=== PATIENT | female | born 1970 | race Caucasian/White ===

== ENCOUNTER → 2018-07-24 | Outpatient (CLI) | payer OTHER ==
[~2018-07-24] MED LIST: ACHD5005 PO; AMOX-358 PO; GUAI5LIQ PO
--- NOTE | 2018-07-24 11:11 | Diagnostic Imaging Report ---
INDICATION: Routine screening. Comparison is made with prior mammogram from 07/03/2016 and 12/13/2014. 2-D and 3-D bilateral screening mammography was performed with CAD. Scattered fibroglandular densities are identified bilaterally. The parenchymal pattern is stable. No dominant mass or malignant appearing microcalcifications are seen. The axillae are unremarkable. IMPRESSION: BI-RADS category one No mammographic features suspicious for malignancy are identified. ACR BI-RADS Category 1: Negative. Result letter will be mailed to the patient. Note: At least 10% of breast cancer is not imaged by mammography. Dictated by: Dictated on workstation # [id number]
== END ==
LOC: RAD 09:32
PROVIDERS: ATTEND Nurse Practitioner Family
DX: Z12.31 Encounter for screening mammogram for malignant neoplasm of breast (principal)
CPT/HCPCS: 77067

== ENCOUNTER 2019-11-14 11:49 | Emergency (ER) | payer SELFPAY ==
[~2019-11-14] VITALS: Ht 157.5 cm; Wt 97.5 kg
[2019-11-14] MEDS ORDERED: ASPIRIN 81 MG CHEW (CHILDREN'S ASA) PO ONE (12:00)
[2019-11-14 12:10] LABS: BASOPHILS % (AUTO) 0 % (0-10); EOSINOPHILS # (AUTO) 0.1 10^3/uL (0.0-0.3); EOSINOPHILS % (AUTO) 2 % (0-10); HEMATOCRIT 39 % (35-52); HEMOGLOBIN 12.9 G/DL (11.5-16.0); LYMPHOCYTES # (AUTO) 1.6 X 10^3 (1.0-4.0); LYMPHOCYTES % (AUTO) 28 % (12-44); MEAN CORPUSCULAR HEMOGLOBIN 30 PG (25-34); MEAN CORPUSCULAR HGB CONC 33 G/DL (32-36); MEAN CORPUSCULAR VOLUME 89 FL (80-99); MEAN PLATELET VOLUME 10.9 FL (7.4-10.4); MONOCYTES # (AUTO) 0.5 X 10^3 (0.0-1.0); MONOCYTES % (AUTO) 9 % (0-12); NEUTROPHILS # (AUTO) 3.4 X 10^3 (1.8-7.8); NEUTROPHILS % (AUTO) 60 % (42-75); PLATELET COUNT 255 10^3/uL (130-400); RED CELL DISTRIBUTION WIDTH 13.6 % (10.0-14.5); WHITE BLOOD COUNT 5.7 10^3/uL (4.3-11.0)
[2019-11-14] MEDS ORDERED: meTOprolol 5 MG/5 ML (LOPRESSOR) VIAL IV ONE (12:15)
[2019-11-14 12:21] LABS: INR 0.9 (0.8-1.4); PROTHROMBIN TIME PATIENT 12.7 SEC (12.2-14.7)
--- NOTE | 2019-11-14 12:23 | Diagnostic Imaging Report ---
CLINICAL HISTORY: Patient with palpitations and hypertension. Exam: Portable chest x-ray upright view. Comparisons: Chest x-ray dated 09/02/2016. Findings: Lungs/pleura: Lungs are clear. There is no pneumothorax. There is no pleural effusion. Mediastinum: Unremarkable. Pulmonary vasculature: Unremarkable. Heart: Unremarkable. Bones/extrathoracic soft tissue: There are hypertrophic spurs involving the thoracic spine. Impression: There is no radiographic evidence of acute cardiopulmonary process. Dictated by: Dictated on workstation # [id number]
--- NOTE | 2019-11-14 12:27 | ED Cardiac General ---
History of Present Illness General Chief Complaint: Cardiac/General Problems Stated Complaint: STATING HEART IS BEATING HARD,HIGH BLOOD PRESSURE Nursing Triage Note: PT AMBULATE TO ROOM 06 WITH C/O PALPITATIONS AND HYPERTENSION. PT STATES THIS HAS HAPPENED PREVIOUSLY. History of Present Illness Date Seen by Provider: Nov 14, 2019 Time Seen by Provider: 11:48 Initial Comments 49-year-old female for palpitations and hypertension started at approximately 0730 this morning. Patient reports blood pressures 180s/100 and pulse 50-110. She has intermittent feelings that her pulse is "hard" but no chest pressure or pain. No n/v/d or diaphoresis. She has no history of CAD or diabetes. Her parents and siblings do have a history of cardiomyopathy. She was started on phentermine 37.5 mg approximately 6 weeks ago for obesity. She has been taking the medication daily and took this medication earlier today. No other medications or allergies. Timing/Duration: 4-6 hours Severity: mild Location: substernal Activities at Onset: none Prior CP/Workup: no prior chest pain NTG SL [employer]: No ASA po [employer]IST: No Associated Systoms: No Chest Pain, No Cough, No Diaphoresis, No Fever/Chills, No Headaches, No Loss of Appetite; Malaise; No Nausea/Vomiting, No Rash, No Seizure, No Shortness of Air, No Syncope, No Weakness Allergies and Home Medications Allergies Coded Allergies: No Known Drug Allergies (Unverified , 10/03/11) Home Medications Amoxicillin/Potassium Clav 1 Each Tablet, 1 EACH PO BID Prescribed by: COLIN AHUMADA on 09/02/16 1304 Guaifenesin/Codeine Phosphate 5 Ml Liquid, 5-10 ML PO Q6H Prescribed by: COLIN AHUMADA on 09/02/16 1304 Hydrocodone Bit/Acetaminophen 1 Each Tablet, 1 EACH PO Q 4 HOURS PRN PAIN Prescribed by: LILIA MATIAS on 10/03/11 1806 Patient Home Medication List Home Medication List Reviewed: Yes Review of Systems Review of Systems Constitutional: no symptoms reported, see HPI EENTM: No Symptoms Reported, See HPI Respiratory: No Symptoms Reported, See HPI; Denies Cough, Denies Shortness of Air, Denies SOA With Exertion, Denies SOA at Rest Cardiovascular: No Symptoms Reported, See HPI; Denies Chest Pain All Other Systems Reviewed Negative Unless Noted: Yes Past Nmbzwlu-Iqlhnk-Gkdxsh Hx Past Med/Social Hx: Reviewed Nursing Past Med/Soc Hx Patient Social History Alcohol Use: Occasionally Uses Recreational Drug Use: No Smoking Status: Former Smoker Type Used: Cigars 2nd Hand Smoke Exposure: Yes Recent Foreign Travel: No Contact w/Someone Who Travel: No Recent Infectious Disease Expo: No Recent Hopitalizations: No Physical Abuse: No Sexual Abuse: No Mistreated: No Fear: No Seasonal Allergies Seasonal Allergies: No Past Medical History Surgeries: Yes Tubal Ligation Respiratory: No Cardiac: No Neurological: No Reproductive Disorders: No Genitourinary: No Gastrointestinal: No Musculoskeletal: No Endocrine: No HEENT: No Cancer: No Psychosocial: No Integumentary: No Blood Disorders: No Physical Exam Vital Signs Vital Signs - First Documented 11/14/19 11:54 Pulse 97 Resp 18 O2 Delivery Room Air O2 Flow Rate 97.00 Capillary Refill : Less Than 3 Seconds Height, Weight, BMI Height: 5'2" Weight: 230lbs. oz. 104.438528xr; 39.00 BMI Method:Stated General Appearance: No Apparent Distress, WD/WN, Obese HEENT: PERRL/EOMI, TMs Normal, Normal ENT Inspection, Pharynx Normal Neck: Full Range of Motion, Normal Inspection, Non Tender, Supple Respiratory: Chest Non Tender, Lungs Clear, Normal Breath Sounds Cardiovascular: Regular Rate, Rhythm, No Edema, No Murmur, Normal Peripheral Pulses Gastrointestinal: Normal Bowel Sounds, Non Tender, Soft Extremity: Normal Capillary Refill, Normal Inspection, Normal Range of Motion Neurologic/Psychiatric: Alert, Oriented x3, No Motor/Sensory Deficits Skin: Normal Color, Warm/Dry Lymphatic: No Adenopathy Progress/Results/Core Measures Results/Orders Lab Results Laboratory Tests Test 11/14/19 12:02 11/14/19 12:27 11/14/19 12:50 Range/Units White Blood Count 5.7 4.3-11.0 10^3/uL Red Blood Count 4.37 4.35-5.85 10^6/uL Hemoglobin 12.9 11.5-16.0 G/DL Hematocrit 39 35-52 % Mean Corpuscular Volume 89 80-99 FL Mean Corpuscular Hemoglobin 30 25-34 PG Mean Corpuscular Hemoglobin Concent 33 32-36 G/DL Red Cell Distribution Width 13.6 10.0-14.5 % Platelet Count 255 130-400 10^3/uL Mean Platelet Volume 10.9 H 7.4-10.4 FL Neutrophils (%) (Auto) 60 42-75 % Lymphocytes (%) (Auto) 28 12-44 % Monocytes (%) (Auto) 9 0-12 % Eosinophils (%) (Auto) 2 0-10 % Basophils (%) (Auto) 0 0-10 % Neutrophils # (Auto) 3.4 1.8-7.8 X 10^3 Lymphocytes # (Auto) 1.6 1.0-4.0 X 10^3 Monocytes # (Auto) 0.5 0.0-1.0 X 10^3 Eosinophils # (Auto) 0.1 0.0-0.3 10^3/uL Basophils # (Auto) 0.0 0.0-0.1 10^3/uL Prothrombin Time 12.7 12.2-14.7 SEC INR Comment 0.9 0.8-1.4 Activated Partial Thromboplast Time 27 24-35 SEC Sodium Level 137 135-145 MMOL/L Potassium Level 5.0 3.6-5.0 MMOL/L Chloride Level 104 98-107 MMOL/L Carbon Dioxide Level 18 L 21-32 MMOL/L Anion Gap 15 H 5-14 MMOL/L Blood Urea Nitrogen 7 7-18 MG/DL Creatinine 0.65 0.60-1.30 MG/DL Estimat Glomerular Filtration Rate > 60 BUN/Creatinine Ratio 11 Glucose Level 84 70-105 MG/DL Calcium Level 9.2 8.5-10.1 MG/DL Corrected Calcium 8.5-10.1 MG/DL Magnesium Level 1.7 1.6-2.4 MG/DL Total Bilirubin 0.5 0.1-1.0 MG/DL Aspartate Amino Transf (AST/SGOT) 31 5-34 U/L Alanine Aminotransferase (ALT/SGPT) 31 0-55 U/L Alkaline Phosphatase 56 40-136 U/L Myoglobin 18.3 10.0-92.0 NG/ML Troponin I < 0.028 <0.028 NG/ML Total Protein 7.7 6.4-8.2 GM/DL Albumin 4.6 H 3.2-4.5 GM/DL TSH [place] Testing 1.03 0.35-4.94 UIU/ML My Orders Orders - YUKO,CHUY PAINT PREPPER Cbc With Automated Diff (11/14/19 11:53) Magnesium (11/14/19 11:53) Chest 1 View, Ap/Pa Only (11/14/19 11:53) Ekg Tracing (11/14/19 11:53) Comprehensive Metabolic Panel (11/14/19 11:53) Myoglobin Serum (11/14/19 11:53) Protime With Inr (11/14/19 11:53) Partial Thromboplastin Time (11/14/19 11:53) O2 (11/14/19 11:53) Monitor-Rhythm Ecg Trace Only (11/14/19 11:53) Ed Iv/Invasive Line Start (11/14/19 11:53) Troponin I (11/14/19 11:53) Aspirin Chewable Tablet (Baby Aspirin Ch (11/14/19 12:00) Ua Culture If Indicated (11/14/19 12:02) Metoprolol Tartrate Injection (Lopressor (11/14/19 12:15) Thyroid Analyzer (11/14/19 12:31) Medications Given in ED Current Medications Medications Dose Ordered Sig/Stu Route Start Time Stop Time Status Last Admin Dose Admin Aspirin 324 mg ONCE ONCE PO 11/14/19 12:00 11/14/19 12:01 DC 11/14/19 12:13 324 MG Metoprolol Tartrate 5 mg ONCE ONCE IV 11/14/19 12:15 11/14/19 12:16 DC 11/14/19 12:13 5 MG Vital Signs/I&O 11/14/19 11:54 Pulse 97 Resp 18 B/P (MAP) O2 Delivery Room Air O2 Flow Rate 97.00 Progress Progress Note : Time: 11:48 Progress Note Patient seen and evaluated, will obtain chest x-ray, EKG, labs and give aspirin 324 mg orally. 1235 B/P 140s/90s, puls 80s, after metoprolol. 1300 patient reports less frequent palpitations. Ambulated to bathroom to obtain UA. No dizziness, gait steady. 1315 B/P has continued to be 120s to 80s, pulse 70-80s. Occasional PVC, but less frequently. Reviewed patient's assessment, EKG and lab findings with Dr. Obrien by phone, agreed with continuing on metoprolol and seeing the patient in his office later this week. 1325 discharge instructions and return precautions discussed with patient and/or family. All questions answered. Initial ECG Impression Date: Nov 14, 2019 Initial ECG Impression Time: 10:10 Initial ECG Rate: 101 Initial ECG Rhythm: Normal Sinus Initial ECG Intervals: Normal Initial ECG Intervals [place] 148, QRSD 94, QT 336, QTC 436. [place] P 63, QRS 1, T 82. Initial ECG Comparisson: Changed Comment Reviewed with Dr. Peralta, agreed with interpretation. Diagnostic Imaging Diagonstic Imaging: Xray Plain Films/CT/US/NM/MRI: chest Comments NAME: MEG FAYE [facility] REC#: [id number] PT STATUS: REG ER : 1970 PHYSICIAN: CHUY HUNTLEY ADMIT DATE: 11/14/19/ER Draft Date of Exam:11/14/19 CHEST 1 VIEW, AP/PA ONLY CLINICAL HISTORY: Patient with palpitations and hypertension. Exam: Portable chest x-ray upright view. Comparisons: Chest x-ray dated 09/02/2016. Findings: Lungs/pleura: Lungs are clear. There is no pneumothorax. There is no pleural effusion. Mediastinum: Unremarkable. Pulmonary vasculature: Unremarkable. Heart: Unremarkable. Bones/extrathoracic soft tissue: There are hypertrophic spurs involving the thoracic spine. Impression: There is no radiographic evidence of acute cardiopulmonary process. Dictated on workstation # [id number] Dict: 11/14/19 1221 Trans: 11/14/19 1223 [id number] Interpreted by: DAQUAN PETERSEN MD Electronically signed by: Reviewed: Reviewed by Me Departure Impression Primary Impression: PVC (premature ventricular contraction) Additional Impression: Obesity (BMI 30-39.9) Disposition: HOME, SELF-CARE Condition: Improved Departure-Patient Inst. Decision time for Depature: 13:15 Referrals: PATRICIA OBRIEN MD, JENNIFER A APRN (PCP) Primary Care Physician Patient Instructions: Ventricular Premature Beats, Ventricular Tachycardia (DC) Add. Discharge Instructions: Discontinue the phentermine. Take Aspirin 81 mg, one daily with food. Continue taking metoprolol 1 tablet daily. Monitor your blood pressure and pulse twice daily and log on a diary. Call Dr. Obrien's office tomorrow for a follow-up appointment. See your Primary Care Provider if symptoms do not improve or worsen. Return to the emergency department for chest pain, shortness of breath, persistent palpitations, nausea and vomiting, or new urgent concerns. All discharge instructions reviewed with patient and/or family. Voiced understanding. Scripts Metoprolol Succinate (Metoprolol Succinate) 25 Mg Tab.er.24h 25 MG PO DAILY, #30 TAB 0 Refills Prov: CHUY HUNTLEY 11/14/19 Copy Copies To 1: PATRICIA OBRIEN MD, AMY ARNP Nov 14, 2019 12:27
[2019-11-14 12:32] LABS: ALANINE AMINOTRANSFERASE 31 U/L (0-55); ALBUMIN 4.6 GM/DL (3.2-4.5); ALKALINE PHOSPHATASE 56 U/L (40-136); BILIRUBIN,TOTAL 0.5 MG/DL (0.1-1.0); BUN/CREATININE RATIO 11; CALCIUM 9.2 MG/DL (8.5-10.1); CARBON DIOXIDE 18 MMOL/L (21-32); CHLORIDE 104 MMOL/L (98-107); CREATININE SERUM 0.65 MG/DL (0.60-1.30); GFR ESTIMATED > 60; GLUCOSE 84 MG/DL (70-105); MAGNESIUM 1.7 MG/DL (1.6-2.4); SODIUM 137 MMOL/L (135-145); TOTAL PROTEIN 7.7 GM/DL (6.4-8.2)
[2019-11-14 12:59] LABS: BILIRUBIN,URINE NEGATIVE (NEGATIVE); CLARITY,URINE CLEAR; COLOR,URINE YELLOW; GLUCOSE, URINE (UA) NEGATIVE (NEGATIVE); KETONES,URINE 1+ (NEGATIVE); LEUKOCYTE ESTERASE ,URINE NEGATIVE (NEGATIVE); NITRITE,URINE NEGATIVE (NEGATIVE); PROTEIN,URINE NEGATIVE (NEGATIVE)
[2019-11-14 13:24] LABS: BACTERIA,URINE FEW /HPF; SQUAMOUS EPITHELIAL CELL,UR 0-2 /HPF; WBC,URINE 0-2 /HPF
[2019-11-14] MEDS ORDERED: MTP25TSR PO (13:32)
[2019-11-14 13:44] VITALS: BP 121/88
== END 2019-11-14 13:49 | disposition home or self-care (01) ==
LOC: EDUNIT# 11:49 → ER 11:51
DX: I49.3 Ventricular premature depolarization (principal); E66.9 Obesity, unspecified; Z68.39 Body mass index [BMI] 39.0-39.9, adult; Z87.891 Personal history of nicotine dependence; Z77.22 Contact with and (suspected) exposure to environmental tobacco smoke (acute) (chronic)
CPT/HCPCS: 36415; 71045; 80053; 81000; 83735; 83874; 84443; 84484; 85025; 85610; 85730; 93005; 93041; 96374

== ENCOUNTER → 2021-06-20 | Outpatient (CLI) | payer OTHER ==
[~2021-06-20] MED LIST changes: +MTP25TSR PO
--- NOTE | 2021-06-20 14:25 | Diagnostic Imaging Report ---
INDICATION: Right breast lump. Correlation is made with prior mammogram from 07/24/2018 and 07/03/2016. 2-D and 3-D bilateral diagnostic mammography was performed with CAD. A BB markers placed at the area palpable abnormality right breast. Scattered fibroglandular densities are noted bilaterally. No mass or malignant-appearing microcalcifications are seen. Axillae are unremarkable. IMPRESSION: No mammographic features suspicious for malignancy are identified. Even so, directed sonographic interrogation of the area of palpable abnormality in the right breast is recommended and will be performed today. BI-RADS 0 ACR BI-RADS Category 0: Incomplete. (Needs additional imaging evaluation). Result letter will be mailed to the patient. Note: At least 10% of breast cancer is not imaged by mammography. Dictated by: Dictated on workstation # [id number]
--- NOTE | 2021-06-20 14:28 | Diagnostic Imaging Report ---
Indication: Palpable lump right breast. Correlation is made with diagnostic mammogram earlier same day. Sonographic interrogation of the area of palpable abnormality in the right breast was performed. This corresponds to the 3:00 retroareolar location. No sonographic abnormality is seen. No solid or cystic mass is detected. IMPRESSION: BI-RADS Category 1 No sonographic abnormality is detected. Continued close clinical and self breast exams recommended to confirm stability of the palpable abnormality. ACR BI-RADS Category 1: Negative. Result letter will be mailed to the patient. Note: At least 10% of breast cancer is not imaged by mammography. Dictated by: Dictated on workstation # [id number]
== END ==
LOC: RAD 12:45
PROVIDERS: ATTEND Nurse Practitioner Family
DX: N63.10 Unspecified lump in the right breast, unspecified quadrant (principal)
CPT/HCPCS: 76642; 77066; G0279; 77062